=== PATIENT | male | born 1970 | race Caucasian/White ===

== ENCOUNTER 2016-08-07 22:25 | Emergency (ER) | payer OTHER ==
[2016-08-07 20:12] LABS: BASOPHILS 0.7 %; BASOPHILS ABSOLUTE 0.07 10/3/uL (0.0-0.16); EOSINOPHILS 2.6 %; EOSINOPHILS ABSOLUTE 0.27 10/3/uL (0.0-0.53); ER CBC TAT 0 Hrs 05 Mins; HEMATOCRIT 43.9 % (40.0-51.0); HEMOGLOBIN 14.9 g/dL (13.6-17.8); IMMATURE GRANULOCYTES 0.4 %; IMMATURE GRANULOCYTES ABSOLUTE 0.04 10/3/uL (0.0-0.11); LYMPHOCYTES 18.8 %; LYMPHOCYTES ABSOLUTE 1.93 10/3/uL (0.67-4.30); MEAN CORPUS HGB CONC 33.9 g/dL (32.0-36.0); MEAN CORPUSCULAR VOLUME 88.5 fL (80-100); MEAN PLATELET VOLUME 10.6 fL (9.2-13.0); MONOCYTES 7.1 %; MONOCYTES ABSOLUTE 0.73 10/3/uL (0.21-1.20); NEUTROPHILS 70.4 %; NEUTROPHILS ABSOLUTE 7.25 10/3/uL (2.02-8.40); PLATELET COUNT 162 10/3/uL (150-400); RBC DISTRIBUTION WIDTH 14.8 % (12.0-16.0); RED CELL COUNT 4.96 10/6/uL (4.7-6.1); WHITE BLOOD CELLS 10.3 10/3/uL (4.5-10.5)
[2016-08-07 20:13] LABS: MANUAL DIFF NO %
[2016-08-07 20:20] LABS: PROTIME (NOT ORD) 12.6 SEC (12.0-14.5)
[2016-08-07 20:21] LABS: PARTIAL THROMBO TIME 27.4 SEC (22.5-37.2)
[2016-08-07 20:43] LABS: BUN (BLOOD UREA NITROGEN) 14 MG/DL (6-23); CALCIUM, SERUM 8.7 MG/DL (8.5-10.4); CHEST PAIN PROFILE TAT 0 Hrs 30 Mins; CHLORIDE, SERUM 105 MMOL/L (96-112); CO2 (CARBON DIOXIDE) 30 MMOL/L (24-34); CREATININE 1.45 MG/DL (0.70-1.30); GFR AFRICAN AMERICAN 66 ML/MIN (>=60); GFR NON AFRICAN AMERICAN 57 ML/MIN (>=60); GLUCOSE, SERUM 130 MG/DL (60-99); POTASSIUM, SERUM 3.5 MMOL/L (3.5-5.3); SODIUM, SERUM 142 MMOL/L (135-148); TROPONIN I 0.04 NG/ML (<0.05)
[~2016-08-07 22:25] MED LIST: *UNABLE1; ACET500CAP PO; ADVIL PO; ALEVE220 MG PO; APRES25 PO; ASA5GR PO; ASAB PO; ASABAYER PO; CO Q-10100 MG PO; CORDARONE PO; COREG PO; COREG12 PO; COREG25 PO; COZ50 PO; DEMA10T PO; DIOV160 PO; DIOV80 PO; DIOVAN HCT320 MG/25 PO; DIOVAN PO; DIOVAN320 MG PO; DSS PO; DULERA 200 MCG/13 GM INH; FENOFIBRATE PO; FENOFIBRIC ACID; FERROUS SULF325 M1 PO; FIBER; FIBERCON PO; HALF81 PO; KDUR20 PO; KLOR-CON 1010 MEQ PO; KLOR-CON M2020 MEQ PO; KLOR-CON PO; L40 PO; LOFIBRA134 MG PO; LORTAB 5 PO; METHOC500B PO; NEUR100 PO; NEXIUM40 PO; NITROSTAT0.4 MG; NITROSTAT0.4 MG SL; NORCO1 TA1 PO; NORCO1 TA2 PO; NORV10 PO; NORVASC PO; NTG150 SL; PROAIR HFA INH; PROTONIX PO; SPIRO25 PO; SYMBICORT 160/41 INH INH; TRAZ100 PO; TRAZ50 PO; TRAZODONE PO; VENTOLIN HFA INH; ZANTAC 150 PO; ZANTAC150 MG PO; ZOCOR10 PO; [UNRECOGNIZED DRUG - REMARK] IM
== END 2016-08-07 23:44 | disposition home or self-care (01) ==
LOC: ER 22:25
PROVIDERS: Specialist
DX: R06.00 Dyspnea, unspecified (principal); J44.9 Chronic obstructive pulmonary disease, unspecified; G47.30 Sleep apnea, unspecified; I11.0 Hypertensive heart disease with heart failure; I50.9 Heart failure, unspecified; I25.10 Atherosclerotic heart disease of native coronary artery without angina pectoris; E78.5 Hyperlipidemia, unspecified; K21.9 Gastro-esophageal reflux disease without esophagitis; I48.91 Unspecified atrial fibrillation; Z79.899 Other long term (current) drug therapy; Z79.82 Long term (current) use of aspirin
CPT/HCPCS: 71020; 71275; 80048; 83735; 84484; 85025; 85610; 85730; 93005; 96374; 99285; A9270-GY; J0360; Q9967